=== PATIENT | male | born 1980 | race Caucasian/White ===

== ENCOUNTER 2020-07-18 01:11 | Emergency (ER) | payer SELFPAY ==
[~2020-07-18] VITALS: Ht 167.6 cm; Wt 73.0 kg
[2020-07-18] MEDS ORDERED: HYDROXYZINE 25MG TABLET PO ONE (02:00)
[2020-07-18] MEDS ORDERED: IBUPROFEN 600MG TABLET PO ONE (02:00)
[2020-07-18 03:41] VITALS: BP 103/69
== END 2020-07-18 03:52 | disposition home or self-care (01) ==
LOC: ER 01:11
DX: J02.8 Acute pharyngitis due to other specified organisms (principal); F41.9 Anxiety disorder, unspecified
CPT/HCPCS: 99283

== ENCOUNTER 2023-09-17 21:31 | Emergency (ER) | payer SELFPAY ==
[~2023-09-17] VITALS: Ht 167.6 cm; Wt 79.0 kg
[2023-09-17 21:58] VITALS: O2SAT 98
[2023-09-17] MEDS ORDERED: GUAIFENESIN 200MG 200 MG TABLET PO PRN (22:15)
[2023-09-17] MEDS ORDERED: AMOX1TAB16 MT (23:50)
[2023-09-17] MEDS ORDERED: GUAI600T26 MT (23:52)
[2023-09-18 00:08] VITALS: BP 132/88; PULSE 77; RESP 19; TEMP 98.9
== END 2023-09-18 00:16 | disposition home or self-care (01) ==
LOC: ER 21:31
DX: J32.9 Chronic sinusitis, unspecified (principal); I10 Essential (primary) hypertension
CPT/HCPCS: 71045; 99283